=== PATIENT | female | born 1995 ===

== ENCOUNTER 2023-09-11 00:43 | Emergency (ER) | payer SELFPAY ==
--- NOTE | 2023-09-11 01:28 | ED ---
General Adult HPI - General Source: RN notes reviewed <Everton Rivas - Last Filed: 09/11/23 01:28> <Edward Urrutia - Last Filed: 09/17/23 19:15> - General Stated complaint: Muscle Aches, Sore Throat, fever, weakness Time Seen by Provider: 09/11/23 01:27 - History of Present Illness Initial comments: Quick note 28-year-old female presenting to the ED with chief complaint of URI symptoms. Patient states today onset of sore throat. Yesterday progressed started to experience fatigue, myalgias. Denies cough. Denies fever. (Everton Rivas) Review of Systems ROS Other: All systems not noted in ROS Statement are negative. <Everton Rivas - Last Filed: 09/11/23 01:28> ROS Other: All systems not noted in ROS Statement are negative. <Edward Urrutia - Last Filed: 09/17/23 19:15> ROS Statement: Those systems with pertinent positive or pertinent negative responses have been documented in the HPI. General Exam <Everton Rivas - Last Filed: 09/11/23 01:28> - General Exam Comments Initial Comments: Visual Physical Exam Vital signs reviewed General: Well-appearing, nontoxic, no acute distress. Head: Normocephalic, atraumatic Eyes: PERRLA, EOMI ENT: Airway patent Chest: Nonlabored breathing Skin: No visual rash, normal skin tone Neuro: Alert and oriented 3 Musculoskeletal: No gross abnormalities (Everton Rivas) Course Vital Signs 09/11/23 01:28 Temperature 98.4 F Pulse Rate 101 H Respiratory 19 Rate Blood Pressure 149/106 O2 Sat by Pulse 99 Oximetry Medical Decision Making <Everton Rivas - Last Filed: 09/11/23 01:28> <Edward Urrutia - Last Filed: 09/17/23 19:15> - Medical Decision Making Quicknote portion performed. Signed Everton Rivas PA-C (Everton Rivas) No attestation required (Edward Urrutia) - Lab Data Lab Results 09/11/23 09/11/23 09/11/23 Range/Units 01:36 01:36 01:36 Urine Color Light Yellow Urine Appearance Turbid H (Clear) Urine pH 6.5 (5.0-8.0) Ur Specific Forsan 1.017 (1.001-1.035) Urine Protein 1+ H (Negative) Urine Glucose (UA) Negative (Negative) Urine Ketones Negative (Negative) Urine Blood Moderate H (Negative) Urine Nitrite Negative (Negative) Urine Bilirubin Negative (Negative) Urine Urobilinogen <2.0 (<2.0) mg/dL Ur Leukocyte Esterase Large H (Negative) Urine RBC 106 H (0-5) /hpf Urine WBC >182 H (0-5) /hpf Urine WBC Clumps Many H (None) /hpf Ur Squamous Epith Cells 12 H (0-4) /hpf Urine Bacteria Occasional H (None) /hpf Urine Mucus Moderate H (None) /hpf Urine HCG, Qual (Not Detectd) Influenza Type A (PCR) Not Detected (Not Detectd) Influenza Type B (PCR) Not Detected (Not Detectd) RSV (PCR) Not Detected (Not Detectd) SARS-CoV-2 (PCR) Not Detected (Not Detectd) Group A Strep (PCR) NOT DETECTED (Not Detectd) 09/11/23 Range/Units 01:36 Urine Color Urine Appearance (Clear) Urine pH (5.0-8.0) Ur Specific Forsan (1.001-1.035) Urine Protein (Negative) Urine Glucose (UA) (Negative) Urine Ketones (Negative) Urine Blood (Negative) Urine Nitrite (Negative) Urine Bilirubin (Negative) Urine Urobilinogen (<2.0) mg/dL Ur Leukocyte Esterase (Negative) Urine RBC (0-5) /hpf Urine WBC (0-5) /hpf Urine WBC Clumps (None) /hpf Ur Squamous Epith Cells (0-4) /hpf Urine Bacteria (None) /hpf Urine Mucus (None) /hpf Urine HCG, Qual Not Detected (Not Detectd) Influenza Type A (PCR) (Not Detectd) Influenza Type B (PCR) (Not Detectd) RSV (PCR) (Not Detectd) SARS-CoV-2 (PCR) (Not Detectd) Group A Strep (PCR) (Not Detectd) Disposition <Everton Rivas - Last Filed: 09/11/23 01:28> <Edward Urrutia - Last Filed: 09/17/23 19:15> Clinical Impression: Sore throat Disposition: LEFT AGAINST MEDICAL ADVICE Referrals: Gonzalez Ely MD [Primary Care Provider] - 1-2 days
[2023-09-11] MEDS ORDERED: SODIUM CHLORIDE 0.9% 1,000 ML IV STA (01:29)
[2023-09-11] MEDS ORDERED: ACETAMINOPHEN TAB 500 MG TAB PO STA (01:29)
[2023-09-11 01:34] VITALS: BP 149/106; PULSE 101; RESP 19; TEMP 98.4
[2023-09-11 02:04] LABS: Appearance,Urine Turbid (Clear); Bacteria,Urine Occasional /hpf; Bilirubin,Urine Negative (Negative); Blood,Urine Moderate (Negative); Color,Urine Light Yellow; Glucose,Urine (UA) Negative (Negative); Ketones,Urine Negative (Negative); Leukocyte Esterase,Urine Large (Negative); Mucus,Urine Moderate /hpf; Nitrite,Urine Negative (Negative); PH, Urine 6.5 (5.0-8.0); Protein,Urine 1+ (Negative); RBC,Urine 106 /hpf (0-5); Specific Gravity,Urine 1.017 (1.001-1.035); Squamous Epithelial Cell,Urine 12 /hpf (0-4); Urobilinogen,Urine <2.0 mg/dL (<2.0); WBC,Urine >182 /hpf (0-5)
== END 2023-09-11 02:32 | disposition left against medical advice (07) ==
LOC: EC 00:43
DX: J02.9 Acute pharyngitis, unspecified (principal); Z53.29 Procedure and treatment not carried out because of patient's decision for other reasons
CPT/HCPCS: 81001; 81025; 87636; 87651; 99283